=== PATIENT | male | born 1945 | race Caucasian/White ===

== ENCOUNTER 2019-05-24 06:00 | Inpatient (IN) | payer MEDICARE ==
[2019-05-23 11:15] VITALS: BMI 26.8
[2019-05-24] MEDS ORDERED: Sodium Chloride 0.9% 10 ML ONE (06:36)
[2019-05-24] MEDS ORDERED: Thrombin 5000 UNITS/5 ML VIAL ONE ×2 (06:36→10:11)
[2019-05-24 06:37] LABS: #Basophils 0.1 thou/uL (0.0-0.2); #Eosinphils 0.3 thou/uL (0.0-0.7); #Lymphocytes 1.8 thou/uL (1.20-3.40); #Monocytes 0.7 thou/uL (0.11-0.59); #Neutrophils 5.5 thou/uL (1.40-6.50); %Basophils 0.6 % (0.0-1.0); %Eosinophils 3.5 % (0.0-10.0); %Lymphocytes 21.7 % (21.0-51.0); %Monocytes 8.5 % (0.0-10.0); %Neutrophils 65.7 % (42.0-75.0); Hemoglobin 15.4 g/dL (14.0-18.0); Mean Corpuscular HGB CONC 33.1 g/dL (32.0-36.0); Mean Corpuscular Hemoglobin 29.8 pg (27.0-31.0); Mean Corpuscular Volume 89.9 fL (78.0-98.0); Mean Platelet Volume 7.7 fL (7.4-10.4); Platelet Count 242 thou/uL (130-400); RBC Distribution Width 11.9 % (11.5-14.5); Red Blood Cell (RBC) Count 5.19 mill/uL (4.70-6.10); White Blood Cell (WBC) Count 8.3 thou/uL (4.8-10.8)
[2019-05-24 06:42] LABS: PTT 28.1 SEC (22.9-36.1); Prothrombin Time 12.8 SEC (12.0-14.7)
[2019-05-24 06:57] LABS: Anion Gap 14 mmol/L (10-20); BUN (Urea Nitrogen) 19 mg/dL (8.4-25.7); Calc. Creatinine Clearance 81 mL/min (70-130); Calcium 9.6 mg/dL (7.8-10.44); Carbon Dioxide 25 mmol/L (23-31); Chloride 106 mmol/L (98-107); Estimated GFR-MDRD 71; Glucose 106 mg/dL (83-110); Potassium 4.1 mmol/L (3.5-5.1); Sodium 141 mmol/L (136-145)
[2019-05-24] MEDS ORDERED: Fentanyl 100 MCG/2 ML VIAL ONE ×3 (07:21→12:51)
[2019-05-24] MEDS ORDERED: Phenylephrine HCL 10 MG/ML VIAL ONE (08:43)
[2019-05-24] MEDS ORDERED: Albumin 5% 500 ML ONE (10:05)
[2019-05-24] MEDS ORDERED: Promethazine HCl 25 MG/ML VIAL SLOW IVP PRN (10:29)
[2019-05-24] MEDS ORDERED: Promethazine HCl 25 MG/ML VIAL IM PRN (10:29)
[2019-05-24] MEDS ORDERED: Ondansetron HCl/PF 4 MG/2 ML Vial IVP PRN (10:29)
[2019-05-24] MEDS ORDERED: Mag-Al 1200 mg/1200 mg/30 ML UDCUP PO PRN (11:49)
[2019-05-24] MEDS ORDERED: Bisacodyl 10 MG SUPP PR PRN (11:49)
[2019-05-24] MEDS ORDERED: traMADol HCl 50 MG TAB PO PRN (11:49)
[2019-05-24] MEDS ORDERED: Fleet Enema 133 ML BOT PR PRN (11:49)
[2019-05-24] MEDS ORDERED: Acetaminophen/Codeine 30-300mg Tablet PO PRN (11:49)
[2019-05-24] MEDS ORDERED: Milk Of Magnesia 30 ML UDCUP PO PRN (11:49)
[2019-05-24] MEDS ORDERED: Ondansetron PF 4 MG/2 ML Vial IVP PRN (11:49)
[2019-05-24] MEDS ORDERED: Acetaminophen 325 MG TAB PO PRN (11:49)
[2019-05-24] MEDS ORDERED: Enoxaparin Sodium 40 MG/0.4 ML SYRINGE SC SCH (11:51)
[2019-05-24] MEDS ORDERED: Vecuronium 10 MG VIAL ONE (11:54)
[2019-05-24] MEDS ORDERED: Glycopyrrolate 0.2 MG/ML 5 ML SYRINGE ONE (11:54)
[2019-05-24] MEDS ORDERED: PROPOFOL 200 MG/20 ML VIAL ONE (11:54)
[2019-05-24] MEDS ORDERED: PHENYLEPHRINE-NS 100 MCG/ML 10 ML SYRINGE ONE (11:54)
[2019-05-24] MEDS ORDERED: Ondansetron PF 4 MG/2 ML Vial ONE (11:54)
[2019-05-24] MEDS ORDERED: Lidocaine 1% PF 5 ML VIAL ONE (11:54)
[2019-05-24] MEDS ORDERED: Rocuronium Bromide 10 MG/ML (10ML VIAL) ONE (11:54)
[2019-05-24] MEDS ORDERED: ePHEDrine/0.9% NaCl/PF SYRINGE 50 mg/10 ml ONE (11:54)
[2019-05-24] MEDS ORDERED: Calcium Chloride 1 GM/10 ML Abboject SYRINGE ONE (11:54)
[2019-05-24] MEDS ORDERED: Dexamethasone 20 MG/5 ML VIAL ONE (11:54)
[2019-05-24] MEDS ORDERED: Enoxaparin Sodium 40 MG/0.4 ML SYRINGE ONE (11:57)
[2019-05-24] MEDS: Sodium Chloride 0.9% 1,000 ML IV SCH (15:23)
[2019-05-24] MEDS: CEFAZOLIN 2 GM in Premix Bag 1 BAG IVPB SCH ×2 (15:23→21:39)
[2019-05-24] MEDS: Morphine 2 MG/ML SYRINGE SLOW IVP PRN ×2 (15:35→17:52)
[2019-05-24] MEDS: Atorvastatin Calcium 10 MG TAB PO SCH (21:40)
[2019-05-24] MEDS: HYDROcodone/Acetaminophen 7.5/325 mg Tablet PO PRN (21:40)
[2019-05-25] MEDS: Sodium Chloride 0.9% 1,000 ML IV SCH ×2 (01:58→14:48)
[2019-05-25 05:41] LABS: #Eosinphils 0.1 thou/uL (0.0-0.7); #Lymphocytes 2.3 thou/uL (1.20-3.40); #Monocytes 1.1 thou/uL (0.11-0.59); #Neutrophils 10.1 thou/uL (1.40-6.50); %Basophils 0.3 % (0.0-1.0); %Eosinophils 0.5 % (0.0-10.0); %Lymphocytes 16.7 % (21.0-51.0); %Monocytes 7.8 % (0.0-10.0); %Neutrophils 74.7 % (42.0-75.0); Hemoglobin 11.1 g/dL (14.0-18.0); Mean Corpuscular HGB CONC 33.6 g/dL (32.0-36.0); Mean Corpuscular Hemoglobin 30.6 pg (27.0-31.0); Mean Corpuscular Volume 90.8 fL (78.0-98.0); Mean Platelet Volume 7.5 fL (7.4-10.4); Platelet Count 196 thou/uL (130-400); RBC Distribution Width 11.8 % (11.5-14.5); Red Blood Cell (RBC) Count 3.64 mill/uL (4.70-6.10); White Blood Cell (WBC) Count 13.5 thou/uL (4.8-10.8)
[2019-05-25] MEDS: CEFAZOLIN 2 GM in Premix Bag 1 BAG IVPB SCH ×3 (05:44→22:00)
[2019-05-25] MEDS: HYDROcodone/Acetaminophen 7.5/325 mg Tablet PO PRN ×3 (05:44→14:37)
[2019-05-25 05:58] LABS: Anion Gap 8 mmol/L (10-20); BUN (Urea Nitrogen) 14 mg/dL (8.4-25.7); Calc. Creatinine Clearance 88 mL/min (70-130); Calcium 8.3 mg/dL (7.8-10.44); Carbon Dioxide 30 mmol/L (23-31); Chloride 105 mmol/L (98-107); Estimated GFR-MDRD 78; Glucose 130 mg/dL (83-110); Potassium 4.3 mmol/L (3.5-5.1); Sodium 139 mmol/L (136-145)
[2019-05-25] MEDS: Losartan/Hydrochlorothiazide 100 mg/25 mg Tablet PO SCH (08:11)
[2019-05-25] MEDS: Enoxaparin Sodium 40 MG/0.4 ML SYRINGE SC SCH (08:12)
[2019-05-25] MEDS: Aspirin 81 mg Enteric Coated Tablet PO SCH (08:12)
--- NOTE | 2019-05-25 09:02 | PRG ---
DATE OF SERVICE: 05/25/2019 SUBJECTIVE: Mr. Stock is now postoperative day #1, following lumbar decompression with Dr. Penn. He is doing quite well from a pain standpoint, is already mobilized in the hallway. He does have Factor V Leiden and as such was on aspirin during surgery and has just started Lovenox. He had a combined 240 mL out overnight out of the bilateral JOSÉ drains, will leave these in and continue antibiotics. His CBC dropped from just about 15-11 this morning, so over 24 hour period, he is down by 4 points. We will recheck this afternoon to make sure this is trending back upwards and if so, will likely not check again. If stable or trending down, we will recheck in the morning. Otherwise, the patient will push to ambulate more. We will recheck the drains tomorrow and potentially remove for discharge. Job ID: [id number]
[2019-05-25] MEDS ORDERED: Prevnar 13-Val Conj/PF 0.5 ML SYRINGE IM ONE (17:00)
[2019-05-25] MEDS ORDERED: Tamsulosin HCl 0.4 MG CAP PO SCH (18:30)
[2019-05-25 18:54] LABS: #Basophils 0.1 thou/uL (0.0-0.2); #Eosinphils 0.2 thou/uL (0.0-0.7); #Lymphocytes 1.6 thou/uL (1.20-3.40); #Monocytes 0.9 thou/uL (0.11-0.59); #Neutrophils 10.2 thou/uL (1.40-6.50); %Basophils 0.4 % (0.0-1.0); %Eosinophils 1.7 % (0.0-10.0); %Lymphocytes 12.2 % (21.0-51.0); %Monocytes 7.1 % (0.0-10.0); %Neutrophils 78.5 % (42.0-75.0); Hemoglobin 11.9 g/dL (14.0-18.0); Mean Corpuscular HGB CONC 33.7 g/dL (32.0-36.0); Mean Corpuscular Hemoglobin 30.7 pg (27.0-31.0); Mean Corpuscular Volume 91.1 fL (78.0-98.0); Mean Platelet Volume 7.7 fL (7.4-10.4); Platelet Count 199 thou/uL (130-400); RBC Distribution Width 11.7 % (11.5-14.5); Red Blood Cell (RBC) Count 3.89 mill/uL (4.70-6.10)
[2019-05-25] MEDS: hydrALAZINE 20 MG/ML VIAL SLOW IVP PRN (20:40)
[2019-05-25] MEDS: Atorvastatin Calcium 10 MG TAB PO SCH (20:41)
[2019-05-26] MEDS: Sodium Chloride 0.9% 1,000 ML IV SCH ×2 (01:52→18:33)
[2019-05-26] MEDS: CEFAZOLIN 2 GM in Premix Bag 1 BAG IVPB SCH ×3 (06:27→21:24)
[2019-05-26] MEDS: HYDROcodone/Acetaminophen 7.5/325 mg Tablet PO PRN ×3 (06:28→19:53)
[2019-05-26] MEDS: Aspirin 81 mg Enteric Coated Tablet PO SCH (08:11)
[2019-05-26] MEDS: hydrALAZINE 20 MG/ML VIAL SLOW IVP PRN (08:11)
[2019-05-26] MEDS: Losartan/Hydrochlorothiazide 100 mg/25 mg Tablet PO SCH (08:11)
[2019-05-26] MEDS: Enoxaparin Sodium 40 MG/0.4 ML SYRINGE SC SCH (08:11)
[2019-05-26] MEDS ORDERED: Tamsulosin HCl 0.4 MG CAP PO SCH (09:00)
--- NOTE | 2019-05-26 09:44 | PRG ---
DATE OF SERVICE: 05/26/2019 Mr. Stock is now 2 days status post lumbar laminectomy and decompression. He is resting comfortably in his room. He reports no pain. He is sitting up in a chair at the time of my visit. He continues to have significant output in his drains and we will leave those in for now. He has also been contending with urinary retention, which as I explained to him is not unusual for an older male in the setting of lumbar spine surgery. He is unable to tolerate Flomax. We did place a Sprague catheter. He may have to discharge with a Sprague catheter until his bladder awakens. We are awaiting on word as far as final disposition. He has been ambulating in the jefefrson with a rolling walker and doing so somewhat easily. Job ID: [id number] [facility]
[2019-05-26] MEDS: Atorvastatin Calcium 10 MG TAB PO SCH (19:53)
[2019-05-26] MEDS: tiZANidine HCl 4 MG TAB PO PRN (19:54)
--- NOTE | 2019-05-26 21:28 | OP ---
DATE OF PROCEDURE: 05/24/2019 PREPROCEDURE DIAGNOSIS: 1. Multilevel lumbar stenosis with low back and leg pain. 2. Left L3-L4 lateral disk extrusion. POSTPROCEDURE DIAGNOSIS: 1. Multilevel lumbar stenosis with low back and leg pain. 2. Left L3-L4 lateral disk extrusion. PROCEDURES PERFORMED: 1. L1-L2, L2-L3, L3-L4, and L4-L5 laminectomies, partial facetectomies, and foraminotomies. 2. Left L3-L4 transfacet approach for left L3 decompression for lateral far lateral diskectomy. 3. Use of operative microscope for microdissection. DESCRIPTION OF PROCEDURE: After informed consent was obtained from the patient, the patient was brought to the OR. Proper patient, pause, and identification were carried out. He was placed under excellent general endotracheal anesthesia and positioned prone on the OR table. All appropriate points were padded. We identified the L1 through L5 dorsal spines and lamina. This region was sterilely cleansed, prepared, and draped. Proper patient, pause, and identification were carried out. We then performed the exposure of the L1 through L5 deep dorsal spine and laminae. An L1 through L5 laminectomy was performed with partial facetectomy and foraminotomy as well. Then, left L3-L4 hemilaminotomy and foraminotomy was performed with decompression of the exiting left L3 nerve root with removal of disk. Copious irrigation occurred throughout as did maximizing hemostasis. The wound was then closed in anatomic layers following sprinkling of vancomycin powder and placement of 2 drains. Job ID: [id number]
[2019-05-27] MEDS: HYDROcodone/Acetaminophen 7.5/325 mg Tablet PO PRN ×2 (05:02→17:16)
[2019-05-27] MEDS: CEFAZOLIN 2 GM in Premix Bag 1 BAG IVPB SCH ×3 (05:02→21:06)
[2019-05-27] MEDS: Sodium Chloride 0.9% 1,000 ML IV SCH ×2 (07:24→23:29)
[2019-05-27] MEDS: Aspirin 81 mg Enteric Coated Tablet PO SCH (08:10)
[2019-05-27] MEDS: Losartan/Hydrochlorothiazide 100 mg/25 mg Tablet PO SCH (08:10)
[2019-05-27] MEDS: Enoxaparin Sodium 40 MG/0.4 ML SYRINGE SC SCH (08:10)
--- NOTE | 2019-05-27 09:43 | PRG ---
DATE OF SERVICE: 05/27/2019 This is Fletcher Villarreal PA-C dictating a report for Alonso Penn MD. Mr. Stock is postoperative day #3 having undergone multilevel lumbar laminectomies and diskectomy. The patient has Factor V Leiden deficiency and has been initiated on prophylactic Lovenox as well as 81 mg aspirin. On postoperative day #7, we will begin 325 mg aspirin, continue with the Lovenox for 10 days postoperatively and then, resume his Xarelto on postoperative day #10. His main issue now is some incisional back pain with movement, although he states once he gets moving, this improves. He also is having some urinary retention and had his Sprague replaced roughly 36 hours ago. Overall though, the patient does feel as though he is improving and he denies any leg pain. He remains with excellent strength in the bilateral lower extremities with intact sensation to light touch throughout. We are awaiting on an inpatient rehab consult. We will also attempt a voiding trial today. He is unable to take Flomax, so I would initiate this. We will check back on the patient, but he will likely need a few more days. We also would like to continue Ancef and his drains, although the trend has been downward in regard to output. Please call with any changes in the patient's neurologic status. Job ID: [id number]
[2019-05-27] MEDS: tiZANidine HCl 4 MG TAB PO PRN (11:26)
[2019-05-27] MEDS: Atorvastatin Calcium 10 MG TAB PO SCH (20:57)
[2019-05-28] MEDS: tiZANidine HCl 4 MG TAB PO PRN (00:22)
[2019-05-28] MEDS: HYDROcodone/Acetaminophen 7.5/325 mg Tablet PO PRN ×2 (00:22→10:12)
[2019-05-28 03:36] VITALS: TEMP 98.1
[2019-05-28] MEDS: CEFAZOLIN 2 GM in Premix Bag 1 BAG IVPB SCH ×2 (06:00→15:31)
[2019-05-28] MEDS: Enoxaparin Sodium 40 MG/0.4 ML SYRINGE SC SCH (10:13)
[2019-05-28] MEDS: Losartan/Hydrochlorothiazide 100 mg/25 mg Tablet PO SCH (10:13)
[2019-05-28] MEDS: Aspirin 81 mg Enteric Coated Tablet PO SCH (10:13)
[2019-05-28] MEDS: Sodium Chloride 0.9% 1,000 ML IV SCH (10:14)
[2019-05-28 12:08] VITALS: BP 174/74
--- NOTE | 2019-05-28 15:06 | PRG ---
DATE OF SERVICE: 05/28/2019 Mr. Stock is now 5 days out from multilevel lumbar decompression and transfacet diskectomy. He has had resolution in his leg pain with minimal incisional pain. We had earlier dealt in the postoperative period with urinary retention. This appears to have resolved. His drain output today is 20 and 5 mL respectively. He has been accepted to inpatient rehab. He has factor V Leiden mutation and as such has had a thromboembolic risk. We have kept him on baby aspirin through surgery and even started Lovenox 40 mg subcu daily the day of surgery. We will now increase this to 40 mg twice daily and continue with the 81 with eventual transition to 325 mg of aspirin daily with the re-initiation of Xarelto at 10 days postop. Job ID: [id number]
--- NOTE | 2019-05-28 15:43 | PRG ---
DATE OF SERVICE: 05/28/2019 Mr. Stock is postoperative day #5 having undergone multilevel lumbar laminectomies. The patient has factor V Leiden deficiency and has been on Lovenox 40 subcu daily once a day and 81 mg aspirin. Starting tonight, we will add an additional 40 mg subcu Lovenox for the next 5 days. Therefore, the transition to blood thinners is as follows. The patient should remain on 81 mg aspirin until 05/31 and start 325 mg of aspirin on 06/01. He will continue b.i.d. Lovenox until June 02. On June 03, the patient will resume his home dosage of Xarelto and remain on 325 mg of aspirin. Therefore, his Lovenox doses will stop on the 02 of June. The patient states that he does have some back pain, but overall he is very pleased with his outcome postoperatively. He continues to deny leg pain. His Sprague catheter was discontinued and he is urinating. He is ready for discharge to inpatient rehab anytime. Arrangements have been made and I have been told that this should happen today. Please call with any changes in the patient's neurologic status. Otherwise, he is recovering well. Job ID: [id number]
== END 2019-05-28 17:30 | disposition home or self-care (01) | DRG 519 ==
LOC: SDC 06:00 → SURG A 11:54 → SDC 11:54 → UNDOADMIN 11:54 → SURG A 11:54 → SDC 05-27 13:07 → SURG A 05-27 13:07 → SDC 05-28 17:30
PROVIDERS: ADMIT Surgery; ATTEND Surgery
PROC: 01NB0ZZ Release Lumbar Nerve, Open Approach (ICD-10-PCS; principal; 2019-05-24)
PROC: 0SB20ZZ Excision of Lumbar Vertebral Disc, Open Approach (ICD-10-PCS; 2019-05-24)
DX: M51.16 Intervertebral disc disorders with radiculopathy, lumbar region (principal); D68.2 Hereditary deficiency of other clotting factors; M48.061 Spinal stenosis, lumbar region without neurogenic claudication; I10 Essential (primary) hypertension; E78.5 Hyperlipidemia, unspecified; Z86.73 Personal history of transient ischemic attack (TIA), and cerebral infarction without residual deficits; Z90.49 Acquired absence of other specified parts of digestive tract
CPT/HCPCS: 36415; 76000; 80048; 85025; 85610; 85730; 86850; 86900; 86901; J0360; J0690; J1100; J1650; J2001; J2270; J2370; J2405; J2704; J3010; J3370; J3490; P9045

== ENCOUNTER 2023-03-03 12:09 | Outpatient (CLI) | payer MEDICARE, OTHER ==
[2023-03-03] MEDS ORDERED: Magnevist 469MG/ML 20 ML VIAL ONE (15:03)
== END 2023-03-03 12:10 | disposition home or self-care (01) ==
LOC: MRI 12:09
PROVIDERS: ATTEND Internal Medicine Hematology & Oncology
DX: C69.40 Malignant neoplasm of unspecified ciliary body (principal)
CPT/HCPCS: 71250; 74183; 82565; A9579